=== PATIENT | male | born 1970 | race Caucasian/White ===

== ENCOUNTER 2020-06-27 13:05 | Emergency (ER) | payer OTHER ==
[2020-06-27 14:12] LABS: HEMOGLOBIN 15.6 gm/dl (14.0-17.5); RED BLOOD COUNT 5.25 M/UL (4.20-5.50); WHITE BLOOD COUNT 8.1 K/UL (4.5-11.0)
[2020-06-27 14:30] LABS: BUN/CREATININE RATIO 17 (0-10)
[2020-06-27] MEDS ORDERED: FLOMAX0.4 MG PO (16:26)
[2020-06-27] MEDS ORDERED: TORADOL 10 MG T10 MG PO (16:26)
== END 2020-06-27 16:25 | disposition home or self-care (01) ==
LOC: ER1 13:05
PROVIDERS: Family Medicine
DX: N13.2 Hydronephrosis with renal and ureteral calculous obstruction (principal); R19.7 Diarrhea, unspecified; F17.210 Nicotine dependence, cigarettes, uncomplicated; Z90.49 Acquired absence of other specified parts of digestive tract
CPT/HCPCS: 80053; 81001; 82150; 83690; 85025; 93005; 96374; 99285; J1885

== ENCOUNTER 2020-09-26 10:32 | Emergency (ER) | payer OTHER ==
[~2020-09-26 10:32] MED LIST: FLOMAX0.4 MG PO; TORADOL 10 MG T10 MG PO
[2020-09-26] MEDS ORDERED: CEPHALEXIN500 MG PO (14:56)
[2020-09-26] MEDS ORDERED: RECTICARE30 GM TP (14:56)
== END 2020-09-26 15:03 | disposition home or self-care (01) ==
LOC: ER1 10:32
DX: N61.0 Mastitis without abscess (principal); K64.9 Unspecified hemorrhoids
CPT/HCPCS: 99283

== ENCOUNTER 2020-10-17 10:40 | Emergency (ER) | payer OTHER ==
[~2020-10-17 10:40] MED LIST changes: +CEPHALEXIN500 MG PO; +RECTICARE30 GM TP
[2020-10-17] MEDS ORDERED: IBUPROFEN600 MG PO (13:00)
[2020-10-17] MEDS ORDERED: CLEOCIN HCL300 MG PO (13:00)
[2020-10-17] MEDS ORDERED: BACTROBAN OINT22 GM EXT (13:00)
== END 2020-10-17 13:23 | disposition home or self-care (01) ==
LOC: ER1 10:40
DX: L02.213 Cutaneous abscess of chest wall (principal); F17.210 Nicotine dependence, cigarettes, uncomplicated; Z90.89 Acquired absence of other organs
CPT/HCPCS: 10060; 87070; 87205; 99283

== ENCOUNTER → 2020-10-26 | Outpatient (CLI) | payer OTHER ==
[~2020-10-26] MED LIST changes: +BACTROBAN OINT22 GM EXT; +CLEOCIN HCL300 MG PO; +IBUPROFEN600 MG PO
== END ==
LOC: US 10:30
DX: N63.10 Unspecified lump in the right breast, unspecified quadrant (principal); N63.31 Unspecified lump in axillary tail of the right breast
CPT/HCPCS: 76641-RT

== ENCOUNTER → 2020-11-09 | Day surgery (SDC) | payer OTHER ==
[~2020-11-09] VITALS: Ht 162.6 cm; Wt 63.5 kg
== END | disposition home or self-care (01) ==
LOC: OR 05:59
DX: K62.5 Hemorrhage of anus and rectum (principal); K64.0 First degree hemorrhoids; N63.0 Unspecified lump in unspecified breast; N40.0 Benign prostatic hyperplasia without lower urinary tract symptoms
CPT/HCPCS: J2704; J7030